=== PATIENT | female | born 1945 | race Two or more races ===

== ENCOUNTER → 2017-07-16 | Emergency (ER) | payer MEDICARE, BC ==
[~2017-07-16] VITALS: Ht 165.1 cm; Wt 81.6 kg
[2017-07-16 15:25] VITALS: BP 138/67
[2017-07-16 15:40] LABS: BASOPHILS # (AUTO) 0.1 /CMM (0.0-0.2); BASOPHILS % (AUTO) 0.6 % (0.0-2.0); EOSINOPHILS # (AUTO) 0.1 /CMM (0.0-0.7); HEMATOCRIT 44 % (33-45); HEMOGLOBIN 15.4 g/dL (11.5-14.8); LYMPHOCYTES # (AUTO) 2.9 /CMM (0.8-4.8); LYMPHOCYTES % (AUTO) 22.6 % (20.0-44.0); MEAN CORPUSCULAR HEMOGLOBIN 31 PG (26.0-33.0); MEAN CORPUSCULAR HGB CONC 35 g/dl (31.0-36.0); MEAN CORPUSCULAR VOLUME 90 fL (82-100); MONOCYTES # (AUTO) 0.9 /CMM (0.1-1.30); NEUTROPHILS # (AUTO) 8.7 /CMM (1.8-8.9); NEUTROPHILS % (AUTO) 68.8 % (43.0-81.0); RDW COEFFICIENT OF VARIATION 12.9 (11.5-15.0); WHITE BLOOD COUNT (AUTO) 12.7 K/uL (4.3-11.0)
[2017-07-16 15:45] LABS: PLATELET COUNT (AUTO) 230 /CMM (150-450)
[2017-07-16 15:50] LABS: CALCIUM, SERUM 9.5 mg/dL (8.5-10.1); CARBON DIOXIDE 27 mmol/L (21-32); CHLORIDE 103 mmol/L (98-107); CREATININE 0.9 mg/dL (0.6-1.3); GLUCOSE 116 mg/dL (74-106); POTASSIUM 3.5 mmol/L (3.5-5.1); SODIUM SERUM 138 mmol/L (136-145); UREA NITROGEN, BLOOD 26 mg/dL (7-18)
[2017-07-16 15:55] LABS: ALANINE AMINOTRANSFERASE 31 U/L (12-78); ALBUMIN 3.5 g/dL (3.4-5.0); ALKALINE PHOSPHATASE 78 U/L (46-116); ASPARTATE AMINOTRANSFERASE 19 U/L (15-37); BILIRUBIN,DIRECT 0.2 mg/dL (0.0-0.2); BILIRUBIN,TOTAL 0.5 mg/dL (0.2-1.0); LIPASE 124 U/L (73-393); TOTAL PROTEIN, SERUM 8.4 g/dL (6.4-8.2)
[2017-07-16 17:28] LABS: APPEARANCE,URINE Clear (CLEAR); BILIRUBIN,URINE SMALL (NEGATIVE); BLOOD, URINE Negative Ery/uL (NEGATIVE); COLOR,URINE Dark (YELLOW); KETONES,URINE Negative (NEGATIVE); LEUKOCYTE ESTERASE ,URINE Negative (NEGATIVE); NITRITE, URINE Negative (NEGATIVE); PH,URINE 5.5 (5.0-8.0); PROTEIN,URINE 30 mg/dl (NEGATIVE); UGLUCOSE Negative (NEGATIVE); UROBILINOGEN,URINE 0.2 EU/dL (0.2)
[2017-07-16 17:45] LABS: RBC,URINE NONE SEEN /HPF (0-2)
[2017-07-16 17:46] LABS: BACTERIA,URINE Rare /HPF (None Seen); CALCIUM OXALATE CRYSTALS,UR Moderate /HPF (None Seen); HYALINE CASTS, URINE Rare /LPF (None Seen); MUCUS,URINE Rare /LPF (None Seen); SQUAMOUS EPITHELIAL CELL,UR Few /HPF (None Seen)
== END | disposition home or self-care (01) ==
LOC: ER 15:24
DX: M79.662 Pain in left lower leg (principal)
CPT/HCPCS: 36415; 71045-TC; 80048-TC; 80076-TC; 81000-TC; 83690-TC; 85025-TC; 85730-TC; A4606; Z7610

== ENCOUNTER → 2018-02-18 | Emergency (ER) | payer MEDICARE, BC ==
[~2018-02-18] VITALS: Ht 165.1 cm; Wt 92.1 kg
[2018-02-18 10:41] LABS: BASOPHILS # (AUTO) 0.1 /CMM (0.0-0.2); BASOPHILS % (AUTO) 1.3 % (0.0-2.0); EOSINOPHILS % (AUTO) 1.2 % (0.0-6.0); HEMATOCRIT 41 % (33-45); HEMOGLOBIN 13.9 g/dL (11.5-14.8); LYMPHOCYTES # (AUTO) 1.7 /CMM (0.8-4.8); LYMPHOCYTES % (AUTO) 28.2 % (20.0-44.0); MEAN CORPUSCULAR HGB CONC 34 g/dl (31.0-36.0); MEAN CORPUSCULAR VOLUME 92 fL (82-100); MONOCYTES # (AUTO) 0.3 /CMM (0.1-1.30); MONOCYTES % (AUTO) 4.5 % (2.0-12.0); NEUTROPHILS # (AUTO) 3.9 /CMM (1.8-8.9); NEUTROPHILS % (AUTO) 64.8 % (43.0-81.0); PLATELET COUNT (AUTO) 200 /CMM (150-450); RDW COEFFICIENT OF VARIATION 13.6 (11.5-15.0); RED BLOOD CELL COUNT(AUTO) 4.44 MIL/uL (4.0-5.2); WHITE BLOOD COUNT (AUTO) 6.1 K/uL (4.3-11.0)
[2018-02-18 10:51] LABS: CALCIUM, SERUM 9.3 mg/dL (8.5-10.1); CARBON DIOXIDE 25 mmol/L (21-32); CHLORIDE 105 mmol/L (98-107); CREATININE 0.8 mg/dL (0.6-1.3); GLUCOSE 195 mg/dL (74-106); POTASSIUM 3.6 mmol/L (3.5-5.1); SODIUM SERUM 140 mmol/L (136-145); UREA NITROGEN, BLOOD 14 mg/dL (7-18)
[2018-02-18 10:56] LABS: INR 0.98 (0.85-1.15)
[2018-02-18 10:57] LABS: ALANINE AMINOTRANSFERASE 39 U/L (12-78); ALBUMIN 3.4 g/dL (3.4-5.0); ALKALINE PHOSPHATASE 73 U/L (46-116); ASPARTATE AMINOTRANSFERASE 24 U/L (15-37); BILIRUBIN,DIRECT 0.1 mg/dL (0.0-0.2); BILIRUBIN,TOTAL 0.4 mg/dL (0.2-1.0); TOTAL PROTEIN, SERUM 7.2 g/dL (6.4-8.2)
[2018-02-18 10:59] LABS: TROPONIN I < 0.017 ng/mL (0.00-0.056)
[2018-02-18 12:28] VITALS: BP 135/45
== END | disposition home or self-care (01) ==
LOC: ER 09:58
DX: R06.02 Shortness of breath (principal); R00.2 Palpitations; R20.2 Paresthesia of skin
CPT/HCPCS: 36415; 71045-TC; 80048-TC; 80076-TC; 84443-TC; 84484-TC; 85025-TC; 85730-TC; A4606; Z7610

== ENCOUNTER 2019-05-15 09:31 | Emergency (ER) | payer MEDICARE, BC ==
[~2019-05-15] VITALS: Ht 165.1 cm; Wt 90.7 kg
[2019-05-15] MEDS ORDERED: ALBUTEROL FS 2.5 MG/3 ML VIAL.NEB NEB ONE (10:00)
[2019-05-15] MEDS ORDERED: IPRATROPIUM NEB FS 0.5 MG/2.5 ML AMPUL.NEB NEB ONE (10:00)
[2019-05-15] MEDS ORDERED: predniSONE 20 MG TABLET PO ONE (10:00)
[2019-05-15] MEDS ORDERED: predniSONE 20 MG TABLET ONE (10:09)
[2019-05-15 10:12] LABS: BASOPHILS # (AUTO) 0.1 /CMM (0.0-0.2); BASOPHILS % (AUTO) 1.1 % (0.0-2.0); EOSINOPHILS % (AUTO) 1.1 % (0.0-6.0); HEMATOCRIT 44 % (33-45); HEMOGLOBIN 14.5 g/dL (11.5-14.8); LYMPHOCYTES # (AUTO) 2.4 /CMM (0.8-4.8); LYMPHOCYTES % (AUTO) 34.9 % (20.0-44.0); MEAN CORPUSCULAR HGB CONC 33 g/dl (31.0-36.0); MEAN CORPUSCULAR VOLUME 93 fL (82-100); MONOCYTES # (AUTO) 0.5 /CMM (0.1-1.30); MONOCYTES % (AUTO) 7.8 % (2.0-12.0); NEUTROPHILS # (AUTO) 3.8 /CMM (1.8-8.9); NEUTROPHILS % (AUTO) 55.1 % (43.0-81.0); PLATELET COUNT (AUTO) 273 /CMM (150-450); RED BLOOD CELL COUNT(AUTO) 4.69 MIL/uL (4.0-5.2); WHITE BLOOD COUNT (AUTO) 6.9 K/uL (4.3-11.0)
[2019-05-15] MEDS ORDERED: ALBUTEROL FS 2.5 MG/3 ML VIAL.NEB ONE (10:16)
[2019-05-15] MEDS ORDERED: IPRATROPIUM NEB FS 0.5 MG/2.5 ML AMPUL.NEB ONE (10:16)
[2019-05-15 10:24] LABS: CREATININE 0.8 mg/dL (0.6-1.3); POTASSIUM 4.1 mmol/L (3.5-5.1)
--- NOTE | 2019-05-15 11:30 | NUR ---
Status quo No acute changes- family at bedside. Await update from .
[2019-05-15 12:05] LABS: B-TYPE NATRIURETIC PEPTIDE 88 PG/ML (0-125)
--- NOTE | 2019-05-15 12:59 | NUR ---
Updated by MD No obvious distress. No Acute chnges- Patient discharged to home in stable condition. Written and verbal after care instructions given. Patient verbalizes understanding of instruction.
[2019-05-15 13:07] VITALS: BP 138/86
== END 2019-05-15 13:07 | disposition home or self-care (01) ==
LOC: ER 09:33
DX: J40 Bronchitis, not specified as acute or chronic (principal); J98.01 Acute bronchospasm; R94.31 Abnormal electrocardiogram [ECG] [EKG]
CPT/HCPCS: 36415; 71045; 80048; 83880; 84484; 85025; 93005; 94640; 99284; J7512

== ENCOUNTER 2019-06-21 20:53 | Emergency (ER) | payer MEDICARE, BC ==
[~2019-06-21] VITALS: Ht 167.6 cm; Wt 90.7 kg
[2019-06-21 21:36] VITALS: BP 146/92
[2019-06-21] MEDS ORDERED: predniSONE 20 MG TABLET ONE (21:57)
[2019-06-21] MEDS ORDERED: predniSONE 10 MG TABLET ONE (21:57)
[2019-06-21] MEDS ORDERED: predniSONE 50 MG TABLET PO ONE (22:00)
== END 2019-06-21 22:07 | disposition home or self-care (01) ==
LOC: ER 20:54
DX: R21 Rash and other nonspecific skin eruption (principal); E11.9 Type 2 diabetes mellitus without complications

== ENCOUNTER 2020-03-31 10:48 | Emergency (ER) | payer MEDICARE, BC ==
[~2020-03-31] VITALS: Ht 160 cm; Wt 90.7 kg
[2020-03-31 11:15] VITALS: BP 141/84
== END 2020-03-31 12:03 | disposition home or self-care (01) ==
LOC: ER 10:49
DX: M72.2 Plantar fascial fibromatosis (principal); M19.90 Unspecified osteoarthritis, unspecified site

== ENCOUNTER 2020-04-04 08:35 | Outpatient (CLI) | payer MEDICARE, BC ==
[2020-04-04] MEDS ORDERED: TRIAMCINOLONE ACETONIDE 50 MG/5 ML VIAL ONE (09:55)
[2020-04-04] MEDS ORDERED: LIDOCAINE 1% INJ 50 ML MDV IJ ONE (09:55)
[2020-04-04] MEDS ORDERED: TRIAMCINOLONE ACETONIDE SUSP 40 MG/ML 1 ML IM ONE (10:30)
== END 2020-04-04 23:59 | disposition home or self-care (01) ==
LOC: WOU 08:35
PROVIDERS: ATTEND Podiatrist Foot & Ankle Surgery
DX: M72.2 Plantar fascial fibromatosis (principal); M19.90 Unspecified osteoarthritis, unspecified site
CPT/HCPCS: 20550; J3490; J3301

== ENCOUNTER 2020-06-01 09:53 | Emergency (ER) | payer MEDICARE, BC ==
[~2020-06-01] VITALS: Ht 160 cm; Wt 88.5 kg
--- NOTE | 2020-06-01 10:10 | NUR ---
PT TO ED BED 09 C/O HEAD AND LOWER BACK PAIN S/P SLIPPED AND FALL YESTERDAY. PT DENIES KO. PAIN WORST TODAY. STABLE VITALS. NAD NOTED. AWAITING MD BLISS.
--- NOTE | 2020-06-01 10:12 | NUR ---
DR GOMEZ AT BEDSIDE FOR EVAL.
[2020-06-01] MEDS ORDERED: TRAMADOL HCL 50 MG TABLET PO ONE (10:30)
--- NOTE | 2020-06-01 10:31 | NUR ---
PT TO RADIOLOGY FOR HEAD AND LUMBAR SPINE CT SCAN VIA [facility].
[2020-06-01] MEDS ORDERED: TRAMADOL HCL 50 MG TABLET ONE (10:41)
[2020-06-01 12:20] VITALS: BP 136/77
--- NOTE | 2020-06-01 12:20 | NUR ---
Patient discharged to home in stable condition. Written and verbal after care instructions given. Patient verbalizes understanding of instruction.
== END 2020-06-01 12:21 | disposition home or self-care (01) ==
LOC: ER 09:53
DX: S00.03XA Contusion of scalp, initial encounter (principal); S30.0XXA Contusion of lower back and pelvis, initial encounter; S09.8XXA Other specified injuries of head, initial encounter; W01.198A Fall on same level from slipping, tripping and stumbling with subsequent striking against other object, initial encounter; Y93.89 Activity, other specified; Y92.89 Other specified places as the place of occurrence of the external cause; Y99.8 Other external cause status
CPT/HCPCS: 70450-TC; 72131-TC

== ENCOUNTER 2020-10-29 08:11 | Emergency (ER) | payer MEDICARE, BC ==
[~2020-10-29] VITALS: Ht 170.2 cm; Wt 91.2 kg
--- NOTE | 2020-10-29 08:11 | NUR ---
PT BIBRA 78 C/O L ARM PAIN S/P SLIP AND FALL. -KO. PT IS AAOX4, NOT IN RESPIRATORY DISTRESS, V/S STABLE, KEPT RESTED AND COMFORTABLE. WILL CONTINUE TO MONITOR.
--- NOTE | 2020-10-29 08:12 | NUR ---
AT BEDSIDE FOR EVAL.
[2020-10-29] MEDS ORDERED: KETOROLAC TROMETHAMINE INJ 30 MG/ML VIAL ONE (08:16)
--- NOTE | 2020-10-29 08:27 | NUR ---
HISTOTECHNOLOGIST SUPERVISOR AT BEDSIDE FOR XRAY.
[2020-10-29] MEDS ORDERED: KETOROLAC TROMETHAMINE INJ 30 MG/ML VIAL IM ONE (08:30)
[2020-10-29] MEDS ORDERED: ONDANSETRON HCL/PF 4 MG/2 ML VIAL ONE (09:02)
[2020-10-29] MEDS ORDERED: MORPHINE SULFATE INJ 4 MG/ML DISP.SYRIN ONE (09:02)
--- NOTE | 2020-10-29 09:15 | NUR ---
CALLED [facility] FOR CONSULT. SPOKE WITH RAI. WILL CALL BACK ONCE ABLE TO REACH [employer] ERP DEVELOPER.
--- NOTE | 2020-10-29 09:17 | NUR ---
[facility] CALLED BACK
[2020-10-29] MEDS ORDERED: MORP15TA PO (09:27)
[2020-10-29] MEDS ORDERED: IBUP-1957 PO (09:28)
[2020-10-29] MEDS ORDERED: MORPHINE SULFATE INJ 2 MG/ML DISP.SYRIN IV ONE ×2 (09:30)
[2020-10-29] MEDS ORDERED: ONDANSETRON HCL/PF 4 MG/2 ML VIAL IV ONE ×2 (09:30)
--- NOTE | 2020-10-29 09:38 | NUR ---
IV removed. Catheter intact and site benign. Pressure and 4x4 applied to site. No bleeding noted. Patient discharged to home in stable condition. Written and verbal after care instructions given. Patient verbalizes understanding of instruction.
[2020-10-29 09:39] VITALS: BP 137/84
== END 2020-10-29 09:39 | disposition home or self-care (01) ==
LOC: ER 08:20
DX: S42.352A Displaced comminuted fracture of shaft of humerus, left arm, initial encounter for closed fracture (principal); M19.90 Unspecified osteoarthritis, unspecified site; W01.0XXA Fall on same level from slipping, tripping and stumbling without subsequent striking against object, initial encounter; Y93.89 Activity, other specified; Y92.89 Other specified places as the place of occurrence of the external cause; Y99.8 Other external cause status
CPT/HCPCS: 29105; 73030; 73060; 96374; 96375; 99284; J1885; J2270; J2405